=== PATIENT | female | born 1965 | race African-American/Black ===

== ENCOUNTER 2018-05-19 16:24 | Emergency (ER) | payer SELFPAY ==
[~2018-05-19] VITALS: Ht 162.6 cm; Wt 109.0 kg
[~2018-05-19 16:24] MED LIST: CYCL-36 PO; DICL50 PO; DOXY100T PO
[2018-05-19 16:29] VITALS: BP 141/74; PULSE 90; RESP 16; TEMP 98.7; O2SAT 97
--- NOTE | 2018-05-19 16:55 | PD ---
HPI Chief Complaint: Pain: Acute or Chronic Time Seen by Provider: 16:48 Travel History International Travel<30 days: No Contact w/Intl Traveler<30days: No Traveled to known affect area: No History of Present Illness HPI 52-year-old female with history of hypertension presents emergency department for evaluation of right wrist pain, left knee pain, low back pain after a slip and fall in a store 1 week ago. Patient states she landed on her buttocks when she fell, striking her left knee and trying to brace her fall with her right upper extremity. She did not strike her head or lose consciousness. She states over the week her pain is only gotten worse in these areas. She is a tried ice and warm heat without any improvement. She states pain is a constant ache but exacerbated to about an 8 out of 10 with use or movement. She has no other symptoms to report. Denies any saddle paresthesia, loss of bowel or bladder, lower extremity weakness. PFSH Past Medical History Diminished Hearing: No Reproductive: Yes (uterine fibroids) ?: Not Menopausal: No : 2 Para: 2 Past Surgical History Section: Yes (X 2) Gynecologic Surgery: Yes (CSECTION) Social History Alcohol Use: No Tobacco Use: No Substance Use: Yes ("WEED") Allergies-Medications (Allergen,Severity, Reaction): Coded Allergies: No Known Allergies (Verified Adverse Reaction, Unknown, 05/19/18) Reported Meds & Prescriptions Reported Meds & Active Scripts Active Ibuprofen 600 Mg Tab 600 Mg PO Q8HR PRN Robaxin (Methocarbamol) 500 Mg Tab 500 Mg PO QID PRN Review of Systems Except as stated in HPI: all other systems reviewed are Neg Physical Exam Narrative GENERAL: Female patient, no acute distress SKIN: Focused skin assessment warm/dry. HEAD: Atraumatic. Normocephalic. EYES: Pupils equal and round. No scleral icterus. No injection or drainage. ENT: No nasal bleeding or discharge. Mucous membranes pink and moist. NECK: Trachea midline. No JVD. CARDIOVASCULAR: Regular rate and rhythm. No murmur appreciated. RESPIRATORY: No accessory muscle use. Clear to auscultation. Breath sounds equal bilaterally. GASTROINTESTINAL: Abdomen soft, non-tender, nondistended. Hepatic and splenic margins not palpable. MUSCULOSKELETAL: No obvious deformities. No clubbing. No cyanosis. No edema. Tenderness elicited palpation of the anterior left knee. No obvious deformity of the right wrist. Mild edema on the dorsum of the right wrist with no deformity. Patient reports tenderness to palpation in the paraspinous musculature of the lumbar spine. No spinal tenderness. No step-off. NEUROLOGICAL: Awake and alert. No obvious cranial nerve deficits. Motor grossly within normal limits. Normal speech. PSYCHIATRIC: Appropriate mood and affect; insight and judgment normal. Data Data Last Documented VS Vital Signs Date Time Temp Pulse Resp B/P (MAP) Pulse Ox O2 Delivery O2 Flow Rate FiO2 05/19/18 17:49 05/19/18 16:29 98.7 90 16 97 Orders Orders Wrist, Complete ([id number]) (05/19/18 ) Knee, Complete (4vws) (05/19/18 ) Spine, Lumbar - Ltd (Ap & Lat) (05/19/18 ) Splint Or Brace Apply/Monitor (05/19/18 17:33) Ed Discharge Order (05/19/18 17:33) Cockup Hand Splint (05/19/18 ) MDM Medical Decision Making Medical Screen Exam Complete: Yes Emergency Medical Condition: Yes Medical Record Reviewed: Yes Differential Diagnosis Contusion versus fracture versus sprain versus discogenic pain versus spasm Narrative Course 52-year-old female presents emergency department for evaluation following a slip and fall that occurred 1 week ago. Patient has no obvious deformities. She moves all extremities without difficulty. X-ray imaging is complete without acute bony abnormality. Findings are discussed with patient. She is provided a Velcro wrist splint and pain control. She is encouraged to follow- up with a primary care provider and return immediately with acute worsening symptoms. Last Impressions Wrist X-Ray 05/19/18 0000 Signed Impressions: CONCLUSION: Negative for fracture or dislocation. Followup in 7-10 days is suggested if sym ptoms persist. Lumbar Spine X-Ray 05/19/18 0000 Signed Impressions: CONCLUSION: Negative for acute process. There is no compression fracture. Knee X-Ray 05/19/18 0000 Signed Impressions: CONCLUSION: Negative for an acute process. There is no joint effusion. Diagnosis Primary Impression: Right wrist sprain Qualified Codes: S63.501A - Unspecified sprain of right wrist, initial encounter Additional Impressions: Left knee pain Qualified Codes: M25.562 - Pain in left knee Low back strain Qualified Codes: S39.012A - Strain of muscle, fascia and tendon of lower back , initial encounter Referrals: Primary Care Physician Patient Instructions: General Instructions, Low Back Strain (ED), Wrist Sprain (ED) Additional Instructions: Ice and or warm moist heat may help to alleviate symptoms wrist brace for support Follow up with a primary care provider Return to ED with acute worsening of symptoms Med/Other Pt SpecificInfo: Prescription(s) given Scripts Ibuprofen (Ibuprofen) 600 Mg Tab 600 MG PO Q8HR Y for PAIN, #30 TAB 0 Refills Prov: Augusta Jacobs 05/19/18 Methocarbamol (Robaxin) 500 Mg Tab 500 MG PO QID Y for MUSCLE SPASM, #20 TAB 0 Refills Prov: Augusta Jacobs 05/19/18 Disposition: 01 DISCHARGE HOME Condition: Stable Augusta Jacobs May 19, 2018 16:55
--- NOTE | 2018-05-19 17:23 | RADRPT ---
EXAM DATE: 05/19/2018 5:19 PM EDT AGE/SEX: 52 years / Female INDICATIONS: Lumbar spine pain, fell CLINICAL DATA: This is the patient's initial encounter. Patient reports that signs and symptoms have been present for 2 days and indicates a pain score of 8/10. MEDICAL/SURGICAL HISTORY: None. None. COMPARISON: No prior exams available for comparison. FINDINGS: The vertebral bodies are in normal alignment without evidence of compression deformity Bone density is normal for age. Soft tissues are grossly intact. CONCLUSION: Negative for acute process. There is no compression fracture. Electronically signed by: Levon Andrade MD 05/19/2018 5:21 PM EDT
--- NOTE | 2018-05-19 17:23 | RADRPT ---
EXAM DATE: 05/19/2018 5:21 PM EDT AGE/SEX: 52 years / Female INDICATIONS: Left knee pain, fell CLINICAL DATA: This is the patient's initial encounter. Patient reports that signs and symptoms have been present for 2 days and indicates a pain score of 10/10. MEDICAL/SURGICAL HISTORY: None. None. COMPARISON: No prior exams available for comparison. FINDINGS: Bony structures are intact and in normal alignment. Joints are intact without dislocation or signifi cant arthropathy. Osseous density is normal. Soft tissues are unremarkable. No radiopaque foreign bodies seen. CONCLUSION: Negative for an acute process. There is no joint effusion. Electronically signed by: Levon Andrade MD 05/19/2018 5:22 PM EDT
--- NOTE | 2018-05-19 17:28 | RADRPT ---
EXAM DATE: 05/19/2018 5:23 PM EDT AGE/SEX: 52 years / Female INDICATIONS: Left posterior wrist pain, fell CLINICAL DATA: This is the patient's initial encounter. Patient reports that signs and symptoms have been present for 2 days and indicates a pain score of 10/10. MEDICAL/SURGICAL HISTORY: None. None. COMPARISON: No prior exams available for comparison. FINDINGS: Bony structures are intact and in normal alignment. Joints are intact without dislocation or signifi cant arthropathy. Osseous density is normal. Soft tissues are unremarkable. No radiopaque foreign bodies seen. CONCLUSION: Negative for fracture or dislocation. Followup in 7-10 days is suggested if symptoms persist. Electronically signed by: Levon Andrade MD 05/19/2018 5:26 PM EDT
[2018-05-19] MEDS ORDERED: ROBA500T PO (17:38)
[2018-05-19] MEDS ORDERED: IBUP-232 PO (17:38)
== END 2018-05-19 17:51 | disposition home or self-care (01) ==
LOC: NEPK 16:24
DX: S63.501A Unspecified sprain of right wrist, initial encounter (principal); M25.562 Pain in left knee; S39.012A Strain of muscle, fascia and tendon of lower back, initial encounter; W01.0XXA Fall on same level from slipping, tripping and stumbling without subsequent striking against object, initial encounter
CPT/HCPCS: 72100; 73110; 73564; 99284; L3908